=== PATIENT | female | born 1995 | race African-American/Black ===

== ENCOUNTER 2018-09-13 16:04 | Emergency (ER) | payer OTHER ==
[~2018-09-13] VITALS: Ht 165.1 cm; Wt 83.0 kg
[~2018-09-13 16:04] MED LIST: TRINATE TABLET1 TAB PO
[2018-09-13 16:39] LABS: ABSOLUTE NEUTROPHILS 5.8 thou/uL (1.4-8.2); BASOPHILS 0.1 % (0.0-2.0); EOSINOPHILS 0.3 % (0.0-3.0); HEMATOCRIT 30.8 % (37.0-47.0); HEMOGLOBIN 10.6 gm/dL (12.0-15.0); LYMPHOCYTES 7.4 % (24.0-44.0); MCH 30.1 pg (26.0-34.0); MCHC 34.3 g/dL (28.0-37.0); MCV 87.8 fL (80.0-100.0); MONOCYTES 4.5 % (1.0-8.0); PLATELET COUNT 188 thou/uL (150-400); POLYS 87.7 % (36.0-66.0); RBC 3.51 mil/uL (4.20-5.00); WBC 6.6 thou/uL (4.0-11.0)
[2018-09-13 16:48] LABS: CALCIUM 8.6 mg/dL (8.5-10.1); CREATININE 0.9 mg/dL (0.6-1.0); POTASSIUM 3.4 mmol/L (3.5-5.1)
[2018-09-13 16:54] LABS: ALBUMIN 2.7 g/dL (3.4-5.0); TOTAL BILIRUBIN 0.3 mg/dL (<0.1-1.0); TOTAL PROTEIN 6.6 g/dL (6.4-8.2)
[2018-09-13 17:39] LABS: URINE BILIRUBIN NEGATIVE (Negative); URINE BLOOD NEGATIVE (Negative); URINE CLARITY CLEAR; URINE COLOR YELLOW; URINE GLUCOSE-RANDOM* NEGATIVE (Negative); URINE KETONES NEGATIVE (Negative); URINE NITRITE-REFLEX NEGATIVE (Negative); URINE PROTEIN (DIPSTICK) NEGATIVE (Negative); URINE UROBILINOGEN 0.2 E.U./dl (0.2-1.0)
[2018-09-13 17:41] LABS: URINE LEUKOCYTES-REFLEX 3+ (Negative)
[2018-09-13 17:53] LABS: CASTS None Seen /LPF (None Seen); CRYSTALS None Seen /LPF (None Seen); SQUAMOUS 4-10 Moderate /LPF (0-3); YEAST-REFLEX Present (None Seen)
[2018-09-13 17:54] LABS: URINE RBC None Seen /HPF (0-2); URINE WBC-REFLEX 6-15 Few /HPF (0-5)
[2018-09-13] MEDS ORDERED: CLOTRIMAZOLE 1%15 G1 VAG (18:01)
[2018-09-13] MEDS ORDERED: KEFLEX500 M1 PO (18:01)
[2018-09-13 18:20] VITALS: BP 131/83
--- NOTE | 2018-09-14 12:53 | EKG ---
[place] [address] [place] [address] ELECTROCARDIOGRAM REPORT Name: MARQUITA HENLEY Room #: DEP SAM Martinez#: [id number] ������������������ Admission: 09/13/18 ������������������ Attend Phys: Discharge: 09/13/18 ������������������ Date of : [birth year] Report #: [id number] ����������������������������������������������������������������� [id number] THIS REPORT FOR: //name// [facility] ED Test Date: 2018-09-13 Test Time: 16:23:58 Pat Name: MARQUITA HENLEY Department: Room: Gender: F Tour Conductor: JESSE : 1995 Requested By: Buzz Murry Order Number: [id number] MD: Arya Tyson Measurements Intervals [place] Rate: 99 P: 43 AR: 159 QRS: 46 QRSD: 82 T: 28 QT: 334 QTc: 429 Interpretive Statements Sinus rhythm Borderline T abnormalities, anterior leads No previous ECG available for comparison Electronically Signed On 09-14-2018 12:53:11 CDT by Arya Tyson [email or web address] ��������������������������������������������� <ELECTRONICALLY SIGNED> ���������������������������������������� By: Arya Tyson MD, [facility] ��������������������������������������������� 09/14/18 1253 1623 1623 Arya Tyson MD, FACC /EPI
== END 2018-09-13 18:20 | disposition home or self-care (01) ==
LOC: ER 16:04
PROVIDERS: Emergency Medicine
DX: O23.592 Infection of other part of genital tract in pregnancy, second trimester (principal); B37.3 Candidiasis of vulva and vagina; O23.42 Unspecified infection of urinary tract in pregnancy, second trimester; O26.892 Other specified pregnancy related conditions, second trimester; R42 Dizziness and giddiness; Z3A.23 23 weeks gestation of pregnancy

== ENCOUNTER 2020-11-09 09:55 | Emergency (ER) | payer OTHER ==
[~2020-11-09] VITALS: Ht 165.1 cm; Wt 81.7 kg
[~2020-11-09 09:55] MED LIST changes: +CLOTRIMAZOLE 1%15 G1 VAG; +KEFLEX500 M1 PO
[2020-11-09 10:56] LABS: URINE BILIRUBIN NEGATIVE (Negative); URINE BLOOD 2+ (Negative); URINE CLARITY CLEAR; URINE COLOR YELLOW; URINE GLUCOSE-RANDOM* NEGATIVE (Negative); URINE KETONES NEGATIVE (Negative); URINE LEUKOCYTES-REFLEX NEGATIVE (Negative); URINE NITRITE-REFLEX NEGATIVE (Negative); URINE PROTEIN (DIPSTICK) NEGATIVE (Negative); URINE SPECIFIC GRAVITY 1.025 (1.005-1.035); URINE UROBILINOGEN 0.2 E.U./dl (0.2-1.0)
[2020-11-09 11:26] LABS: HEMATOCRIT 35.6 % (37.0-47.0); HEMOGLOBIN 11.8 gm/dL (12.0-15.0); MCH 30.6 pg (26.0-34.0); MCV 92.6 fL (80.0-100.0); RBC 3.84 mil/uL (4.20-5.00); RDW 13.7 % (10.5-14.5); WBC 5.7 thou/uL (4.0-11.0)
[2020-11-09 11:26] LABS: BACTERIA-REFLEX 1-9 Few /HPF (None Seen); CASTS None Seen /LPF (None Seen); CRYSTALS None Seen /LPF (None Seen); SQUAMOUS 0-3 Few /LPF (0-3); URINE RBC 3-10 Few /HPF (NONE SEEN); URINE WBC-REFLEX None Seen /HPF (0-5)
[2020-11-09 11:45] LABS: CALCIUM 8.5 mg/dL (8.5-10.1); POTASSIUM 3.7 mmol/L (3.5-5.1)
[2020-11-09] MEDS ORDERED: METHOCARBAMOL500 M2 PO (12:55)
[2020-11-09 13:10] VITALS: BP 131/69
== END 2020-11-09 13:10 | disposition home or self-care (01) ==
LOC: ER 09:55
PROVIDERS: Emergency Medicine
DX: N92.1 Excessive and frequent menstruation with irregular cycle (principal); Z79.899 Other long term (current) drug therapy